=== PATIENT | female | born 1985 | race Caucasian/White ===

== ENCOUNTER 2016-11-26 15:02 | Inpatient (IN) | payer OTHER, MEDICARE ==
[~2016-11-26] VITALS: Ht 165.1 cm; Wt 46.0 kg
[~2016-11-26 15:02] MED LIST: AMOX-291 PO; AMOX1TAB64 PO; AMPI500C2 PO; BACL-19 PO; CEFD300C37 PO; CEFU250T PO; CEFU500T50 PO; ENAL2.5T PO; GABA-827 PO; GABA300C10 PO; HYDR2TAB13 PO; HYDR2TAB40 PO; HYDR4TAB16 PO; INSU100C SQ; LISI-167 PO; LORA2TAB PO; LORA2TAB99 PO; METO10TA82; MIRT15TA4 PO; NITR100C56; NITR100C56 PO; ONDA4TAB10 PO; ONDA4TAB7 PO; OXYC5TAB3 PO; OXYM10TA PO; POLY17PO5 PO; PREG100C PO; PROC25SU25 PR; PROM25TA10 PO; PROP50TA3; SENN1TAB7 PO
[2016-11-26] MEDS ORDERED: SODIUM CHLORIDE 0.9% 1,000 ML IV ONE (15:24)
[2016-11-26] MEDS ORDERED: SODIUM CHLORIDE 0.9% 1,000ML IVBOLUS ONE ×3 (15:30→17:00)
[2016-11-26] MEDS ORDERED: ONDANSETRON 2MG/ML, 2ML IVPush ONE (15:30)
[2016-11-26] MEDS ORDERED: ONDANSETRON 2MG/ML, 2ML ONE (15:37)
[2016-11-26 15:59] LABS: PH, VENOUS 7.259 pH (7.320-7.420)
[2016-11-26] MEDS ORDERED: OXYM5TAB PO (16:01)
[2016-11-26] MEDS ORDERED: INSULIN PUMP (16:01)
[2016-11-26] MEDS ORDERED: GABA300C10 PO (16:01)
[2016-11-26 16:08] LABS: PATH.CAST-FLAG NOT PRESENT; SPERM-FLAG NOT PRESENT; SRC-FLAG NOT PRESENT; XTAL-FLAG NOT PRESENT; YLC-FLAG NOT PRESENT
[2016-11-26] MEDS ORDERED: HYDROmorphone 1 MG/ML, 1ML ONE ×2 (16:12→18:03)
[2016-11-26 16:15] LABS: ASPARTATE AMINO TRANSFERASE 14 U/L (15-37); BLOOD UREA NITROGEN 67 mg/dL (7-18)
[2016-11-26] MEDS: HYDROmorphone 1 MG/ML, 1ML IVPush PRN ×4 (16:16→23:14)
[2016-11-26 16:28] LABS: DIFF TOTAL CELLS COUNTED 100 CELL DIFF
[2016-11-26] MEDS ORDERED: REGULAR INSULIN 62.5 UNITS in SODIUM CHLORIDE 0.9% 249.375 ML IV PRN ×4 (16:29→22:31)
[2016-11-26] MEDS ORDERED: CEFTRIAXONE PMX 1GM/50ML 50 ML IV ONE (16:30)
[2016-11-26 16:33] LABS: VERIFY COUNTS? YES
[2016-11-26 16:39] LABS: IS PT STATUS REG ER OR PRE ER? YES
[2016-11-26] MEDS ORDERED: LIDOCAINE 1%, 20ML INFIL ONE (17:00)
[2016-11-26] MEDS ORDERED: CEFTRIAXONE PMX 1GM/50ML 50 ML ONE (17:04)
[2016-11-26] MEDS ORDERED: LIDOCAINE 1%, 20ML ONE (17:04)
[2016-11-26] MEDS ORDERED: BISACODYL 10 MG SUPP PR PRN (18:00)
[2016-11-26] MEDS ORDERED: OXYcodone IR 5MG TABLET PO PRN (18:00)
[2016-11-26] MEDS ORDERED: POLYETHYLENE GLYCOL 17 GM PACKET PO PRN (18:00)
[2016-11-26] MEDS ORDERED: ONDANSETRON 2MG/ML, 2ML IVPush PRN (18:00)
[2016-11-26 18:21] LABS: HCG UR OBC PASS
[2016-11-26 18:50] LABS: BLOOD UREA NITROGEN 66 mg/dL (7-18)
[2016-11-26] MEDS: HEPARIN 5,000 UNITS/ML, 1ML SQ SCH (20:16)
[2016-11-26] MEDS ORDERED: FAMOTIDINE 20 MG TABLET PO SCH (21:00)
[2016-11-26 21:09] LABS: BLOOD UREA NITROGEN 65 mg/dL (7-18)
[2016-11-26] MEDS: GABAPENTIN 300 MG CAPSULE PO SCH (21:10)
[2016-11-26] MEDS: SODIUM CHLORIDE 0.9% 1,000 ML IV SCH (21:13)
[2016-11-26 22:46] LABS: BLOOD UREA NITROGEN 61 mg/dL (7-18)
[2016-11-26] MEDS ORDERED: D5%-0.45% NACL 1,000 ML IV PRN (23:00)
[2016-11-26] MEDS ORDERED: SODIUM BICARB 8.4%, 50ML SYRINGE IVPB PRN (23:00)
[2016-11-26] MEDS ORDERED: LORazepam 1MG TABLET ONE (23:08)
[2016-11-27 02:18] LABS: BLOOD UREA NITROGEN 54 mg/dL (7-18)
[2016-11-27] MEDS: SODIUM CHLORIDE 0.9% 1,000 ML IV SCH ×3 (02:35→22:50)
[2016-11-27] MEDS: HEPARIN 5,000 UNITS/ML, 1ML SQ SCH ×3 (02:36→18:00)
[2016-11-27] MEDS ORDERED: D5%-0.45NACL+KCL 20MEQ 1,000 ML IV SCH (03:00)
[2016-11-27] MEDS: HYDROmorphone 1 MG/ML, 1ML IVPush PRN (03:40)
[2016-11-27 04:36] VITALS: BP 149/68
[2016-11-27 04:44] LABS: BLOOD UREA NITROGEN 50 mg/dL (7-18)
[2016-11-27 04:48] LABS: ASPARTATE AMINO TRANSFERASE 20 U/L (15-37)
[2016-11-27 05:38] LABS: DIFF TOTAL CELLS COUNTED 100 CELL DIFF
[2016-11-27 05:40] LABS: VERIFY COUNTS? YES
[2016-11-27] MEDS ORDERED: VANCOMYCIN 800 MG in SODIUM CHLORIDE 0.9% 100 ML IV ONE (06:30)
[2016-11-27] MEDS ORDERED: INSULIN DETEMIR 100 UNITS/ML, PEN SQ-INSULIN ONE (06:30)
[2016-11-27] MEDS ORDERED: VANCOMYCIN PER PHARMACY MC PRN (06:30)
[2016-11-27] MEDS ORDERED: PHARMACOKINETIC MONITORING MC PRN (06:30)
[2016-11-27 07:22] VITALS: BP 122/61
[2016-11-27] MEDS: FAMOTIDINE 20 MG TABLET PO SCH (08:07)
[2016-11-27] MEDS: INSULIN ASPART 100 UNITS/ML, 3ML PEN MEDIUM DOSE SS SQ-INSULIN SCH ×4 (09:22→20:48)
[2016-11-27 10:10] LABS: BLOOD UREA NITROGEN 44 mg/dL (7-18)
[2016-11-27] MEDS: HYDROmorphone 2MG TABLET PO PRN ×4 (10:39→23:31)
[2016-11-27 13:34] VITALS: BP 159/111
[2016-11-27] MEDS ORDERED: CEFTRIAXONE 1,000 MG in SODIUM CHLORIDE 0.9% 50 ML IV SCH (15:00)
[2016-11-27] MEDS: CEFTRIAXONE PMX 1GM/50ML 50 ML IV SCH (17:05)
[2016-11-27 19:37] VITALS: BP 153/99
[2016-11-27] MEDS: GABAPENTIN 300 MG CAPSULE PO SCH (20:48)
[2016-11-28] MEDS: INSULIN ASPART 100 UNITS/ML, 3ML PEN MEDIUM DOSE SS SQ-INSULIN SCH ×6 (01:00→20:40)
[2016-11-28 02:00] VITALS: BP 165/99
[2016-11-28] MEDS: HEPARIN 5,000 UNITS/ML, 1ML SQ SCH ×3 (02:00→17:15)
[2016-11-28] MEDS: HYDROmorphone 2MG TABLET PO PRN ×5 (03:30→21:26)
[2016-11-28 05:29] LABS: BLOOD UREA NITROGEN 24 mg/dL (7-18)
[2016-11-28] MEDS ORDERED: INSULIN DETEMIR 100 UNITS/ML, PEN SQ-INSULIN SCH (06:00)
[2016-11-28 07:01] VITALS: BP 145/95
[2016-11-28] MEDS: FAMOTIDINE 20 MG TABLET PO SCH (08:42)
[2016-11-28] MEDS ORDERED: VANCOMYCIN PMX 1GM/200ML 200 ML IVPB SCH (12:00)
[2016-11-28 12:43] VITALS: BP 155/103
[2016-11-28] MEDS ORDERED: INSULIN DETEMIR 100 UNITS/ML, PEN SQ-INSULIN ONE (15:30)
[2016-11-28] MEDS: CEFTRIAXONE PMX 1GM/50ML 50 ML IV SCH (17:10)
[2016-11-28 19:27] VITALS: BP 155/92
[2016-11-28] MEDS: SODIUM CHLORIDE 0.9% 1,000 ML IV SCH (20:36)
[2016-11-28] MEDS: GABAPENTIN 300 MG CAPSULE PO SCH (20:38)
[2016-11-29 01:30] VITALS: BP 168/111
[2016-11-29] MEDS: HYDROmorphone 2MG TABLET PO PRN ×4 (01:42→15:22)
[2016-11-29] MEDS: HEPARIN 5,000 UNITS/ML, 1ML SQ SCH ×2 (01:43→10:00)
[2016-11-29] MEDS: INSULIN ASPART 100 UNITS/ML, 3ML PEN MEDIUM DOSE SS SQ-INSULIN SCH ×4 (01:49→15:25)
[2016-11-29 05:47] LABS: BLOOD UREA NITROGEN 17 mg/dL (7-18)
[2016-11-29 06:40] VITALS: BP 155/122
[2016-11-29] MEDS ORDERED: INSULIN DETEMIR 100 UNITS/ML, PEN SQ-INSULIN SCH (09:00)
[2016-11-29] MEDS: FAMOTIDINE 20 MG TABLET PO SCH (09:43)
[2016-11-29] MEDS: SODIUM CHLORIDE 0.9% 1,000 ML IV SCH (09:51)
[2016-11-29] MEDS ORDERED: AMOX-367 PO (11:51)
[2016-11-29] MEDS ORDERED: INSU100I28 SQ-INSULIN (11:51)
[2016-11-29] MEDS ORDERED: AMOXICILLIN/CLAV 500-125MG TABLET PO SCH (12:00)
[2016-11-29 14:04] VITALS: BP 155/98
== END 2016-11-29 18:00 | disposition home or self-care (01) | DRG 919 ==
LOC: ED 16:13 → EDIP 17:49 → CCU 18:54 → ICU 22:53 → 3NE 11-27 13:16
PROVIDERS: ADMIT Hospitalist; ATTEND Hospitalist
PROC: 0H9CXZZ Drainage of Left Upper Arm Skin, External Approach (ICD-10-PCS; principal; 2016-11-26)
DX: T85.624A Displacement of insulin pump, initial encounter (principal); A41.9 Sepsis, unspecified organism; R65.20 Severe sepsis without septic shock; E10.10 Type 1 diabetes mellitus with ketoacidosis without coma; N17.9 Acute kidney failure, unspecified; F11.20 Opioid dependence, uncomplicated; L02.416 Cutaneous abscess of left lower limb; E87.1 Hypo-osmolality and hyponatremia; L97.419 Non-pressure chronic ulcer of right heel and midfoot with unspecified severity; L97.429 Non-pressure chronic ulcer of left heel and midfoot with unspecified severity; E10.621 Type 1 diabetes mellitus with foot ulcer; F41.9 Anxiety disorder, unspecified; G89.29 Other chronic pain; I10 Essential (primary) hypertension; E10.40 Type 1 diabetes mellitus with diabetic neuropathy, unspecified; B95.61 Methicillin susceptible Staphylococcus aureus infection as the cause of diseases classified elsewhere; E86.0 Dehydration; I80.8 Phlebitis and thrombophlebitis of other sites; F17.210 Nicotine dependence, cigarettes, uncomplicated; F12.90 Cannabis use, unspecified, uncomplicated; Z90.49 Acquired absence of other specified parts of digestive tract; Z88.5 Allergy status to narcotic agent; Z88.8 Allergy status to other drugs, medicaments and biological substances; Z91.040 Latex allergy status; Z79.899 Other long term (current) drug therapy; Z87.440 Personal history of urinary (tract) infections; Z79.4 Long term (current) use of insulin
CPT/HCPCS: 36415; 71010; 80048; 80053; 81001; 81025; 82010; 82803; 82962; 83036; 83690; 83735; 84100; 84484; 85025; 85610; 85651; 86141; 87040; 87070; 87077; 87081; 87086; 87186; 87205; 93005; 96361; 96365; 96366; 96375; J0696; J1170; J1644; J1815; J2405; J3370; J3480; J7030; J7050

== ENCOUNTER 2017-06-06 22:35 | Inpatient (IN) | payer OTHER, MEDICARE ==
[~2017-06-06] VITALS: Ht 165.1 cm; Wt 48.3 kg
[~2017-06-06 22:35] MED LIST changes: +AMOX-367 PO; +CARI350T14 PO; -HYDR2TAB13 PO; +HYDR2TAB29 PO; -HYDR4TAB16 PO; +HYDR4TAB48 PO; +IBUP200C6 PO; +INSU100I28 SQ-INSULIN; +INSULIN PUMP; +MELO15TA24 PO; +OXYM5TAB PO
[2017-06-07] MEDS ORDERED: ONDANSETRON 2MG/ML, 2ML IVPush ONE
[2017-06-07] MEDS ORDERED: ONDANSETRON 2MG/ML, 2ML ONE (00:13)
[2017-06-07 00:19] LABS: PH, VENOUS 7.329 pH (7.320-7.420)
[2017-06-07 00:22] LABS: HEMATOCRIT 33.9 % (34.6-47.8); HEMOGLOBIN 11.1 g/dL (11.7-16.4); WHITE BLOOD COUNT 11.1 x10^3/uL (3.4-10)
[2017-06-07 00:39] LABS: BLOOD UREA NITROGEN 32 mg/dL (7-18)
[2017-06-07 00:45] LABS: ASPARTATE AMINO TRANSFERASE 19 U/L (15-37)
[2017-06-07 00:50] LABS: ACETAMINOPHEN < 2 mcg/mL (10-30)
[2017-06-07 02:16] LABS: DAU SCREEN DISCLAIMER
[2017-06-07] MEDS ORDERED: INSULIN REGULAR 100 UNITS/ML, 3ML VIAL SQ-INSULIN ONE (03:00)
[2017-06-07] MEDS ORDERED: SODIUM CHLORIDE 0.9% 1,000ML IVBOLUS ONE ×2 (03:00)
[2017-06-07] MEDS ORDERED: INSULIN REGULAR 100 UNITS/ML, 3ML VIAL ONE (03:21)
[2017-06-07] MEDS ORDERED: CEFTRIAXONE PMX 1GM/50ML 50 ML ONE (03:21)
[2017-06-07] MEDS ORDERED: CEFTRIAXONE PMX 1GM/50ML 50 ML IV ONE (03:30)
[2017-06-07 03:53] VITALS: BP 159/105
[2017-06-07 03:55] VITALS: BP 159/102
[2017-06-07] MEDS: SODIUM CHLORIDE 0.9% 1,000 ML IV SCH ×11 (05:54→19:56)
[2017-06-07] MEDS ORDERED: ACETAMINOPHEN 325 MG TABLET PO PRN (06:00)
[2017-06-07] MEDS ORDERED: BISACODYL 10 MG SUPP PR PRN (06:00)
[2017-06-07] MEDS ORDERED: ONDANSETRON 2MG/ML, 2ML IVPush PRN (06:00)
[2017-06-07] MEDS ORDERED: DOCUSATE 100 MG CAPSULE PO PRN (06:00)
[2017-06-07] MEDS ORDERED: ONDANSETRON ODT 4 MG PO PRN (06:00)
[2017-06-07 06:15] LABS: HEMATOCRIT 31.8 % (34.6-47.8); HEMOGLOBIN 10.8 g/dL (11.7-16.4); WHITE BLOOD COUNT 9.8 x10^3/uL (3.4-10)
[2017-06-07 06:35] LABS: ASPARTATE AMINO TRANSFERASE 18 U/L (15-37); BLOOD UREA NITROGEN 29 mg/dL (7-18)
[2017-06-07 07:08] VITALS: BP 168/100
[2017-06-07] MEDS ORDERED: KETOROLAC 30 MG/1 ML IVPush PRN (08:00)
[2017-06-07] MEDS ORDERED: LABETALOL 5MG/ML, 20ML IVPush PRN (08:30)
[2017-06-07] MEDS: INSULIN ASPART 100 UNITS/ML, PEN SQ-INSULIN SCH ×2 (08:42→12:17)
[2017-06-07] MEDS ORDERED: LISINOPRIL 10 MG TABLET PO SCH (09:00)
[2017-06-07 14:00] VITALS: BP 149/89
[2017-06-07] MEDS ORDERED: CALCIUM CARBONATE 500 MG TAB.CHEW ONE (16:45)
[2017-06-07] MEDS ORDERED: CALCIUM CARBONATE 500 MG TAB.CHEW PO PRN (17:00)
[2017-06-07] MEDS ORDERED: INSULIN ASPART 100 UNITS/ML, PEN SQ-INSULIN SCH (17:00)
[2017-06-07 20:16] VITALS: BP 126/69
[2017-06-07] MEDS ORDERED: INSULIN DETEMIR 100 UNITS/ML, PEN SQ-INSULIN SCH (21:00)
[2017-06-07] MEDS ORDERED: INSULIN ASPART 100 UNITS/ML, PEN SQ-INSULIN ONE (21:00)
[2017-06-08] MEDS ORDERED: CEFTRIAXONE PMX 1GM/50ML 50 ML IV SCH (03:30)
[2017-06-08] MEDS ORDERED: CEFTRIAXONE 1,000 MG in DEXTROSE 5% 50 ML IV SCH (03:30)
== END 2017-06-07 21:10 | disposition left against medical advice (07) | DRG 637 ==
LOC: ED 23:59 → EDIP 06-07 03:02 → 4NOR 06-07 03:47
PROVIDERS: ADMIT Surgery; ATTEND Surgery
DX: E11.10 Type 2 diabetes mellitus with ketoacidosis without coma (principal); N17.0 Acute kidney failure with tubular necrosis; G93.41 Metabolic encephalopathy; N30.90 Cystitis, unspecified without hematuria; I11.9 Hypertensive heart disease without heart failure; F12.90 Cannabis use, unspecified, uncomplicated; E10.65 Type 1 diabetes mellitus with hyperglycemia; E86.0 Dehydration; E11.65 Type 2 diabetes mellitus with hyperglycemia; G89.29 Other chronic pain; Z79.4 Long term (current) use of insulin; Z87.19 Personal history of other diseases of the digestive system; Z91.14 Patient's other noncompliance with medication regimen; Z90.49 Acquired absence of other specified parts of digestive tract; Z90.89 Acquired absence of other organs; Z88.8 Allergy status to other drugs, medicaments and biological substances; Z91.040 Latex allergy status
CPT/HCPCS: 36415; 80053; 80061; 80307; 80329; 81001; 82010; 82803; 82947; 82962; 83036; 83690; 83735; 84100; 84443; 84703; 85025; 87086; 93005; 96361; 96372; 96374; J0696; J1815; J1885; G0479; G0480; J7030

== ENCOUNTER 2017-10-09 12:47 | Inpatient (IN) | payer OTHER, MEDICARE ==
[~2017-10-09] VITALS: Ht 165.1 cm; Wt 56.0 kg
[2017-10-09] MEDS ORDERED: SODIUM CHLORIDE 0.9% 1,000 ML IV ONE ×2 (13:17→15:04)
[2017-10-09] MEDS ORDERED: SODIUM CHLORIDE 0.9% 1,000ML IVBOLUS ONE ×2 (13:30→14:30)
[2017-10-09] MEDS ORDERED: SODIUM CHLORIDE FLUSH 10ML SYR IVF ONE (13:30)
[2017-10-09 13:47] LABS: BASOPHILS # (AUTO) 0.03 x10^3/uL (0-0.1); BASOPHILS % (AUTO) 0 % (0-1); EOSINOPHILS # (AUTO) 0.05 x10^3/uL (0-0.4); EOSINOPHILS % (AUTO) 1 % (1-7); LYMPHOCYTES # (AUTO) 1.18 x10^3/uL (1-3.4); LYMPHOCYTES % (AUTO) 13 % (22-44); MD NO; MEAN CORPUSCULAR HEMOGLOBIN 29.8 pg (27.0-34.8); MEAN CORPUSCULAR HGB CONC 33.8 g/dL (32.4-35.8); MEAN CORPUSCULAR VOLUME 88.2 fL (80-100); MEAN PLATELET VOLUME 8.4 fL (7.4-10.4); MONOCYTES # (AUTO) 0.51 x10^3/uL (0.2-0.8); MONOCYTES % (AUTO) 6 % (2-9); NEUTROPHILS # (AUTO) 7.28 x10^3/uL (1.8-6.8); NEUTROPHILS % (AUTO) 81 % (42-75); PLATELET COUNT 311 x10^3/uL (130-400); RED BLOOD COUNT 4.42 x10^6/uL (3.82-5.3); RED CELL DISTRIBUTION WIDTH 15.9 % (9.6-15.2)
[2017-10-09 13:55] LABS: CULTURE INDICATED? YES; MICROSCOPIC INDICATED
[2017-10-09 13:58] LABS: ANION GAP 13 mmol/L (5-15); CALCIUM 9.1 mg/dL (8.5-10.1); CHLORIDE 87 mmol/L (98-107)
[2017-10-09 14:02] LABS: ACETONE, SERUM Small (20mg/dL) mg/dL (Negative)
[2017-10-09 14:04] LABS: ALANINE AMINOTRANSFERASE 26 U/L (12-78); ALKALINE PHOSPHATASE 92 U/L (45-117); BILIRUBIN,TOTAL 0.5 mg/dL (0.2-1.0); CREATININE 2.54 mg/dL (0.55-1.02)
[2017-10-09] MEDS ORDERED: CEFTRIAXONE PMX 1GM/50ML 50 ML ONE (14:18)
[2017-10-09] MEDS ORDERED: CEFTRIAXONE PMX 1GM/50ML 50 ML IVPB ONE (14:30)
[2017-10-09 14:40] LABS: HEMOGLOBIN A1C 8.6 % (4.2-6.3)
[2017-10-09] MEDS ORDERED: MORPHINE SULFATE 4 MG/ML, 1ML ONE (15:08)
[2017-10-09] MEDS ORDERED: INSULIN REGULAR 100 UNITS/ML, 3ML VIAL ONE (15:09)
[2017-10-09] MEDS ORDERED: CARI350T PO (15:18)
[2017-10-09] MEDS ORDERED: IBUP-1221 PO (15:18)
[2017-10-09] MEDS ORDERED: MORPHINE SULFATE 4 MG/ML, 1ML IVPush PRN (15:30)
[2017-10-09] MEDS ORDERED: INSULIN REGULAR 100 UNITS/ML, 3ML VIAL IVPush ONE (15:30)
[2017-10-09] MEDS ORDERED: SODIUM CHLORIDE FLUSH 10ML SYR IVF PRN (15:30)
[2017-10-09] MEDS ORDERED: GLUCAGON 1 MG IM PRN (16:00)
[2017-10-09] MEDS ORDERED: DEXTROSE 50%, 50ML SYRINGE IVPush PRN (16:00)
[2017-10-09] MEDS ORDERED: SODIUM CHLORIDE 0.9% 1,000 ML IV SCH ×4 (16:00→20:00)
[2017-10-09] MEDS ORDERED: DEXTROSE 4 GM TAB.CHEW PO PRN (16:00)
[2017-10-09] MEDS ORDERED: ONDANSETRON 2MG/ML, 2ML IVPush PRN (16:00)
[2017-10-09 16:52] LABS: ALBUMIN 3.2 g/dL (3.4-5.0); ANION GAP 11 mmol/L (5-15); CALCIUM 8.4 mg/dL (8.5-10.1); CHLORIDE 103 mmol/L (98-107)
[2017-10-09 16:57] LABS: ALANINE AMINOTRANSFERASE 23 U/L (12-78); ALKALINE PHOSPHATASE 72 U/L (45-117); BILIRUBIN,TOTAL 0.3 mg/dL (0.2-1.0); CREATINE KINASE, TOTAL 78 U/L (26-192); CREATININE 2.11 mg/dL (0.55-1.02); TOTAL PROTEIN 6.6 g/dL (6.4-8.2)
[2017-10-09] MEDS ORDERED: SODIUM CHLORIDE 0.9% 1,500 ML IV SCH (17:00)
[2017-10-09] MEDS ORDERED: SODIUM CHLORIDE 0.9% 1,500 ML IV ONE (17:30)
[2017-10-09] MEDS ORDERED: ONDANSETRON ODT 4 MG ONE (17:38)
[2017-10-09] MEDS: AMPICILLIN/SULBACTAM 1,500 MG in SODIUM CHLORIDE 0.9% 50 ML IV SCH ×2 (17:47→23:31)
[2017-10-09] MEDS: INSULIN LISPRO 100 UNITS/ML, PEN SQ-INSULIN SCH ×2 (17:49→20:53)
[2017-10-09] MEDS: HEPARIN 5,000 UNITS/ML, 1ML SQ SCH (17:49)
[2017-10-09] MEDS: LIDODERM 5% PATCH TD SCH (17:50)
[2017-10-09 18:09] VITALS: BP 126/84
[2017-10-09 18:39] VITALS: BP 124/80
[2017-10-09] MEDS ORDERED: POTASSIUM CHLORIDE 20 MEQ TAB.ER.PRT PO ONE (20:30)
[2017-10-09] MEDS: SODIUM CHLORIDE FLUSH 10ML SYR IVF SCH (20:45)
[2017-10-09] MEDS ORDERED: INSULIN GLARGINE 100 UNITS/ML, PEN SQ-INSULIN SCH (21:00)
[2017-10-09] MEDS ORDERED: PHENAZOPYRIDINE 200 MG TABLET PO ONE (23:00)
[2017-10-09 23:57] VITALS: BP 131/87
[2017-10-10] MEDS: HEPARIN 5,000 UNITS/ML, 1ML SQ SCH ×4 (03:01→18:00)
[2017-10-10] MEDS: AMPICILLIN/SULBACTAM 1,500 MG in SODIUM CHLORIDE 0.9% 50 ML IV SCH ×3 (04:52→18:29)
[2017-10-10 05:30] LABS: BASOPHILS # (AUTO) 0.03 x10^3/uL (0-0.1); BASOPHILS % (AUTO) 1 % (0-1); EOSINOPHILS # (AUTO) 0.13 x10^3/uL (0-0.4); EOSINOPHILS % (AUTO) 2 % (1-7); LYMPHOCYTES % (AUTO) 31 % (22-44); MD NO; MEAN CORPUSCULAR HEMOGLOBIN 30.5 pg (27.0-34.8); MEAN CORPUSCULAR HGB CONC 33.6 g/dL (32.4-35.8); MEAN CORPUSCULAR VOLUME 90.8 fL (80-100); MONOCYTES # (AUTO) 0.44 x10^3/uL (0.2-0.8); MONOCYTES % (AUTO) 7 % (2-9); NEUTROPHILS # (AUTO) 3.91 x10^3/uL (1.8-6.8); NEUTROPHILS % (AUTO) 60 % (42-75); PLATELET COUNT 257 x10^3/uL (130-400); RED BLOOD COUNT 3.27 x10^6/uL (3.82-5.3)
[2017-10-10 05:32] LABS: ALBUMIN 2.9 g/dL (3.4-5.0); ANION GAP 7 mmol/L (5-15); CALCIUM 8.1 mg/dL (8.5-10.1); CHLORIDE 107 mmol/L (98-107)
[2017-10-10 05:36] LABS: ALANINE AMINOTRANSFERASE 19 U/L (12-78); ALKALINE PHOSPHATASE 62 U/L (45-117); BILIRUBIN,TOTAL 0.5 mg/dL (0.2-1.0); CREATININE 1.25 mg/dL (0.55-1.02)
[2017-10-10] MEDS: INSULIN LISPRO 100 UNITS/ML, PEN SQ-INSULIN SCH ×4 (07:00→21:27)
[2017-10-10 08:30] VITALS: BP 123/58
[2017-10-10] MEDS ORDERED: CARISOPRODOL 350 MG TABLET PO SCH (09:00)
[2017-10-10] MEDS: SODIUM CHLORIDE FLUSH 10ML SYR IVF SCH ×2 (09:27→21:00)
[2017-10-10 12:06] VITALS: BP 149/102
[2017-10-10] MEDS ORDERED: AMLODIPINE 5 MG TABLET PO SCH (13:00)
[2017-10-10 15:28] VITALS: BP 145/94
[2017-10-10] MEDS ORDERED: SODIUM CHLORIDE 0.9% 1,500 ML IV ONE (17:00)
[2017-10-10] MEDS: LIDODERM 5% PATCH TD SCH (18:29)
[2017-10-10 20:00] VITALS: BP 152/95
[2017-10-10] MEDS: INSULIN GLARGINE 100 UNITS/ML, PEN SQ-INSULIN SCH (21:50)
[2017-10-11] VITALS (7 sets, daily range): BP systolic 128–167; BP diastolic 76–123
[2017-10-11] MEDS: AMPICILLIN/SULBACTAM 1,500 MG in SODIUM CHLORIDE 0.9% 50 ML IV SCH ×2 (00:33→06:28)
[2017-10-11] MEDS: HEPARIN 5,000 UNITS/ML, 1ML SQ SCH ×3 (02:00→17:23)
[2017-10-11] MEDS: hydrALAzine 20 MG/ML, 1ML IV PRN ×3 (05:18→20:19)
[2017-10-11 05:34] LABS: CHLORIDE 103 mmol/L (98-107)
[2017-10-11 05:42] LABS: BASOPHILS # (AUTO) 0.02 x10^3/uL (0-0.1); BASOPHILS % (AUTO) 1 % (0-1); EOSINOPHILS # (AUTO) 0.21 x10^3/uL (0-0.4); EOSINOPHILS % (AUTO) 5 % (1-7); LYMPHOCYTES # (AUTO) 2.02 x10^3/uL (1-3.4); LYMPHOCYTES % (AUTO) 42 % (22-44); MD NO; MEAN CORPUSCULAR HEMOGLOBIN 30.6 pg (27.0-34.8); MEAN CORPUSCULAR HGB CONC 34.2 g/dL (32.4-35.8); MEAN CORPUSCULAR VOLUME 89.5 fL (80-100); MEAN PLATELET VOLUME 7.6 fL (7.4-10.4); MONOCYTES # (AUTO) 0.38 x10^3/uL (0.2-0.8); MONOCYTES % (AUTO) 8 % (2-9); NEUTROPHILS # (AUTO) 2.16 x10^3/uL (1.8-6.8); NEUTROPHILS % (AUTO) 45 % (42-75); PLATELET COUNT 242 x10^3/uL (130-400); RED BLOOD COUNT 3.65 x10^6/uL (3.82-5.3); RED CELL DISTRIBUTION WIDTH 16.2 % (9.6-15.2)
[2017-10-11 05:47] LABS: ALANINE AMINOTRANSFERASE 21 U/L (12-78); ALBUMIN 3.3 g/dL (3.4-5.0); ALKALINE PHOSPHATASE 66 U/L (45-117); ANION GAP 9 mmol/L (5-15); BILIRUBIN,TOTAL 0.3 mg/dL (0.2-1.0); CALCIUM 9.2 mg/dL (8.5-10.1); TOTAL PROTEIN 6.9 g/dL (6.4-8.2)
[2017-10-11] MEDS: INSULIN LISPRO 100 UNITS/ML, PEN SQ-INSULIN SCH ×4 (07:00→20:25)
[2017-10-11] MEDS: SODIUM CHLORIDE FLUSH 10ML SYR IVF SCH ×2 (08:18→20:52)
[2017-10-11] MEDS: AMLODIPINE 5 MG TABLET PO SCH (08:18)
[2017-10-11] MEDS ORDERED: AMOXICILLIN/CLAV 875-125MG TABLET PO SCH (09:00)
[2017-10-11] MEDS: DIPHENHYDRAMINE 25 MG CAPSULE PO PRN ×2 (12:09→22:25)
[2017-10-11] MEDS: NITROFURANTOIN 50 MG CAPSULE PO SCH ×2 (16:20→20:19)
[2017-10-11] MEDS: LIDODERM 5% PATCH TD SCH (17:28)
[2017-10-11] MEDS: INSULIN GLARGINE 100 UNITS/ML, PEN SQ-INSULIN SCH (20:25)
[2017-10-12] MEDS: HEPARIN 5,000 UNITS/ML, 1ML SQ SCH ×3 (02:00→17:37)
[2017-10-12 03:58] VITALS: BP 157/97
[2017-10-12] MEDS: INSULIN LISPRO 100 UNITS/ML, PEN SQ-INSULIN SCH ×3 (07:00→16:00)
[2017-10-12 08:43] VITALS: BP 169/119
[2017-10-12] MEDS: NITROFURANTOIN 50 MG CAPSULE PO SCH ×3 (08:44→16:03)
[2017-10-12] MEDS: AMLODIPINE 5 MG TABLET PO SCH (08:45)
[2017-10-12] MEDS: SODIUM CHLORIDE FLUSH 10ML SYR IVF SCH (08:46)
[2017-10-12] MEDS ORDERED: LISINOPRIL 5 MG TABLET PO SCH (09:00)
[2017-10-12 14:03] VITALS: BP 121/79
[2017-10-12] MEDS: LIDODERM 5% PATCH TD SCH (17:30)
== END 2017-10-12 19:12 | disposition left against medical advice (07) | DRG 682 ==
LOC: ED 14:18 → EDIP 15:04 → 4WST 16:51
PROVIDERS: ADMIT Hospitalist; ATTEND Hospitalist
DX: N17.9 Acute kidney failure, unspecified (principal); G93.41 Metabolic encephalopathy; E10.10 Type 1 diabetes mellitus with ketoacidosis without coma; E10.40 Type 1 diabetes mellitus with diabetic neuropathy, unspecified; N39.0 Urinary tract infection, site not specified; E87.1 Hypo-osmolality and hyponatremia; F23 Brief psychotic disorder; N13.6 Pyonephrosis; E10.65 Type 1 diabetes mellitus with hyperglycemia; E86.0 Dehydration; Z53.21 Procedure and treatment not carried out due to patient leaving prior to being seen by health care provider; E83.41 Hypermagnesemia; F41.9 Anxiety disorder, unspecified; E10.649 Type 1 diabetes mellitus with hypoglycemia without coma; E87.6 Hypokalemia; G47.00 Insomnia, unspecified; I10 Essential (primary) hypertension; Z79.4 Long term (current) use of insulin; Z87.440 Personal history of urinary (tract) infections; Z87.442 Personal history of urinary calculi
CPT/HCPCS: 36415; 76770; 80053; 81001; 82010; 82550; 82800; 82962; 83036; 83605; 83690; 83735; 84100; 84145; 84703; 85025; 87040; 87077; 87086; 87186; 96361; 96365; 96375; J0696; J1644; J0295; J0360; J1815; J7030; Q0163

== ENCOUNTER 2018-04-07 19:08 | Emergency (ER) | payer MEDICARE, OTHER ==
[~2018-04-07] VITALS: Ht 165.1 cm; Wt 45.0 kg
[~2018-04-07 19:08] MED LIST changes: +CARI350T PO; +IBUP-1221 PO; -SENN1TAB7 PO; +SENN1TAB8 PO
[2018-04-07] MEDS ORDERED: ONDANSETRON ODT 4 MG ONE (19:30)
[2018-04-07 19:59] LABS: BASOPHILS # (AUTO) 0.04 x10^3/uL (0-0.1); BASOPHILS % (AUTO) 1 % (0-1); EOSINOPHILS # (AUTO) 0.11 x10^3/uL (0-0.4); EOSINOPHILS % (AUTO) 2 % (1-7); LYMPHOCYTES # (AUTO) 2.31 x10^3/uL (1-3.4); LYMPHOCYTES % (AUTO) 39 % (22-44); MD NO; MEAN CORPUSCULAR HEMOGLOBIN 30.4 pg (27.0-34.8); MEAN CORPUSCULAR HGB CONC 33.3 g/dL (32.4-35.8); MEAN CORPUSCULAR VOLUME 91.1 fL (80-100); MEAN PLATELET VOLUME 7.7 fL (7.4-10.4); MONOCYTES % (AUTO) 3 % (2-9); NEUTROPHILS # (AUTO) 3.27 x10^3/uL (1.8-6.8); NEUTROPHILS % (AUTO) 55 % (42-75); PLATELET COUNT 310 x10^3/uL (130-400); RED BLOOD COUNT 4.11 x10^6/uL (3.82-5.3)
[2018-04-07] MEDS ORDERED: SODIUM CHLORIDE FLUSH 10ML SYR IVF ONE (20:00)
[2018-04-07] MEDS ORDERED: ONDANSETRON 2MG/ML, 2ML IVPush ONE (20:00)
[2018-04-07] MEDS ORDERED: SODIUM CHLORIDE 0.9% 1,000ML IVBOLUS ONE ×2 (20:00→21:00)
[2018-04-07 20:10] LABS: HCG UR SG 1.019 (1.003-1.030); MICROSCOPIC AUTO
[2018-04-07 20:11] LABS: ALBUMIN 3.5 g/dL (3.4-5.0); ANION GAP 12 mmol/L (5-15); CALCIUM 8.5 mg/dL (8.5-10.1); CHLORIDE 110 mmol/L (98-107); CREATININE 1.34 mg/dL (0.55-1.02)
[2018-04-07 20:18] LABS: CULTURE INDICATED? NO
[2018-04-07 21:46] VITALS: BP 110/64
== END 2018-04-07 21:49 | disposition home or self-care (01) ==
LOC: ED 21:43
DX: E11.65 Type 2 diabetes mellitus with hyperglycemia (principal); R11.2 Nausea with vomiting, unspecified; I10 Essential (primary) hypertension; Z90.49 Acquired absence of other specified parts of digestive tract; E11.10 Type 2 diabetes mellitus with ketoacidosis without coma
CPT/HCPCS: 36415; 74021; 80048; 81001; 81025; 82040; 82962; 85025; 96361; 96374; 99285; J2405; J7030

== ENCOUNTER 2018-06-21 11:25 | Inpatient (IN) | payer OTHER, MEDICARE ==
[~2018-06-21] VITALS: Ht 165.1 cm; Wt 50.5 kg
--- NOTE | 2018-06-21 11:41 | NUR ---
PT TO ROOM FROM LOBBY
--- NOTE | 2018-06-21 11:47 | NUR ---
33 Y/O FEMALE PRESENTS TO ED WITH C/O LOW BP. "I WAS AT MY DR'S AND HE SAID MY BP IS REALLY LOW. AND JUST SENT ME HERE. I WAS DIZZY WHEN I WOKE UP AND AT THE OFFICE. HE IS MY PAIN DR." PT PLACED ON CONT PULSE OX, NIBP, DIETIST. NO C/O N/V/D, TRAUMA, SYNCOPE, CP, SOB.
--- NOTE | 2018-06-21 12:18 | NUR ---
UA WALKED TO LAB. WHEN PT ASKED REGARDING A STOOL SAMPLE, PT STATES "I DON'T HAVE ANY TO GO."
[2018-06-21] MEDS ORDERED: SODIUM CHLORIDE 0.9% 1,000ML IVBOLUS ONE (12:30)
[2018-06-21 12:39] LABS: FIO2 RA %; PH, VENOUS 7.394 pH (7.320-7.420)
[2018-06-21 12:45] LABS: BASOPHILS % (AUTO) 0 % (0-1); EOSINOPHILS # (AUTO) 0.01 x10^3/uL (0-0.4); EOSINOPHILS % (AUTO) 0 % (1-7); LYMPHOCYTES % (AUTO) 11 % (22-44); MD NO; MEAN CORPUSCULAR HEMOGLOBIN 30.8 pg (27.0-34.8); MEAN CORPUSCULAR HGB CONC 32.9 g/dL (32.4-35.8); MEAN CORPUSCULAR VOLUME 93.8 fL (80-100); MEAN PLATELET VOLUME 8.4 fL (7.4-10.4); MONOCYTES # (AUTO) 0.33 x10^3/uL (0.2-0.8); MONOCYTES % (AUTO) 6 % (2-9); NEUTROPHILS # (AUTO) 4.36 x10^3/uL (1.8-6.8); NEUTROPHILS % (AUTO) 82 % (42-75); PLATELET COUNT 278 x10^3/uL (130-400); RED BLOOD COUNT 4.09 x10^6/uL (3.82-5.3); RED CELL DISTRIBUTION WIDTH 15.7 % (9.6-15.2)
[2018-06-21 12:51] LABS: ALANINE AMINOTRANSFERASE 290 U/L (12-78); ANION GAP 8 mmol/L (5-15); CALCIUM 8.5 mg/dL (8.5-10.1); CHLORIDE 101 mmol/L (98-107)
[2018-06-21 12:53] LABS: ACETONE, SERUM Trace (10mg/dL) mg/dL (Negative)
[2018-06-21 12:54] LABS: ALKALINE PHOSPHATASE 201 U/L (45-117); BILIRUBIN,TOTAL 0.6 mg/dL (0.2-1.0); CREATININE 2.35 mg/dL (0.55-1.02); TOTAL PROTEIN 6.6 g/dL (6.4-8.2)
[2018-06-21 12:56] LABS: TROPONIN I < 0.015 ng/mL (0.000-0.045)
[2018-06-21 12:58] LABS: MICROSCOPIC INDICATED
[2018-06-21 13:10] LABS: CULTURE INDICATED? YES
[2018-06-21] MEDS ORDERED: DIAZEPAM 5 MG/ML, 10ML VIAL IV ONE (13:30)
[2018-06-21] MEDS ORDERED: CYCLOBENZAPRINE 10 MG TABLET PO PRN (14:00)
[2018-06-21] MEDS ORDERED: ACETAMINOPHEN 325 MG TABLET PO PRN (14:00)
--- NOTE | 2018-06-21 14:06 | NUR ---
VALIUM IVP GIVEN. ADMITTING MD, DR. PATEL, AT BEDSIDE.
--- NOTE | 2018-06-21 14:36 | NUR ---
BEDSIDE REPORT CALLED TO DORITA RN. Addendum: 06/21/18 at 1441 by NIGEL REPORT CALLED TO RN. ARIANA
--- NOTE | 2018-06-21 14:40 | NUR ---
pt transferred to floor. pt left with all personal belongings.
[2018-06-21 15:33] VITALS: BP 110/69
[2018-06-21] MEDS: INSULIN LISPRO 100 UNITS/ML, PEN SQ-INSULIN SCH ×2 (16:00→21:00)
[2018-06-21] MEDS: MORPHINE SULFATE 4 MG/ML, 1ML IVPush PRN ×2 (16:34→19:48)
[2018-06-21] MEDS: HEPARIN 5,000 UNITS/ML, 1ML SQ SCH (16:34)
[2018-06-21] MEDS: SODIUM CHLORIDE 0.9% 1,000 ML IV SCH ×2 (16:34→21:46)
[2018-06-21 19:17] VITALS: BP 123/83
[2018-06-21 20:13] LABS: CLOSTRIDIUM DIFFICILE ANTIGEN NEGATIVE; CLOSTRIDIUM DIFFICILE TOXIN NEGATIVE (Negative)
[2018-06-22] MEDS: MORPHINE SULFATE 4 MG/ML, 1ML IVPush PRN ×5 (00:02→13:02)
[2018-06-22 01:47] VITALS: BP 139/88
[2018-06-22] MEDS: SODIUM CHLORIDE 0.9% 1,000 ML IV SCH ×2 (03:15→09:50)
[2018-06-22] MEDS: HEPARIN 5,000 UNITS/ML, 1ML SQ SCH (04:30)
[2018-06-22 05:16] LABS: ANION GAP 5 mmol/L (5-15); CALCIUM 7.6 mg/dL (8.5-10.1); CHLORIDE 112 mmol/L (98-107); CREATININE 1.21 mg/dL (0.55-1.02)
[2018-06-22 05:19] LABS: BASOPHILS # (AUTO) 0.02 x10^3/uL (0-0.1); BASOPHILS % (AUTO) 1 % (0-1); EOSINOPHILS % (AUTO) 3 % (1-7); LYMPHOCYTES # (AUTO) 1.61 x10^3/uL (1-3.4); LYMPHOCYTES % (AUTO) 40 % (22-44); MD NO; MEAN CORPUSCULAR HEMOGLOBIN 31.8 pg (27.0-34.8); MEAN CORPUSCULAR VOLUME 93.6 fL (80-100); MEAN PLATELET VOLUME 8.3 fL (7.4-10.4); MONOCYTES # (AUTO) 0.39 x10^3/uL (0.2-0.8); MONOCYTES % (AUTO) 10 % (2-9); NEUTROPHILS # (AUTO) 1.91 x10^3/uL (1.8-6.8); NEUTROPHILS % (AUTO) 47 % (42-75); PLATELET COUNT 225 x10^3/uL (130-400); RED BLOOD COUNT 3.28 x10^6/uL (3.82-5.3); RED CELL DISTRIBUTION WIDTH 15.4 % (9.6-15.2)
[2018-06-22 06:44] VITALS: BP 158/109
[2018-06-22] MEDS: INSULIN LISPRO 100 UNITS/ML, PEN SQ-INSULIN SCH ×2 (07:00→11:00)
[2018-06-22 12:15] VITALS: BP 144/89
== END 2018-06-22 14:18 | disposition home or self-care (01) | DRG 684 ==
LOC: ED 13:34 → EDIP 13:35 → ED 13:37 → 3NE 14:50
PROVIDERS: ADMIT Hospitalist; ATTEND Hospitalist
DX: N17.9 Acute kidney failure, unspecified (principal); E10.22 Type 1 diabetes mellitus with diabetic chronic kidney disease; E86.0 Dehydration; F12.90 Cannabis use, unspecified, uncomplicated; F17.200 Nicotine dependence, unspecified, uncomplicated; I12.9 Hypertensive chronic kidney disease with stage 1 through stage 4 chronic kidney disease, or unspecified chronic kidney disease; N18.3 Chronic kidney disease, stage 3 (moderate); Z87.19 Personal history of other diseases of the digestive system; Z96.41 Presence of insulin pump (external) (internal); K52.9 Noninfective gastroenteritis and colitis, unspecified; I95.9 Hypotension, unspecified; Z88.8 Allergy status to other drugs, medicaments and biological substances; Z79.899 Other long term (current) drug therapy; Z90.49 Acquired absence of other specified parts of digestive tract
CPT/HCPCS: 36415; 71045; 76700; 80048; 80053; 80074; 81001; 82010; 82803; 82947; 82962; 83690; 83735; 83930; 84484; 85025; 87086; 87324; 93005; 96374; G0378; J1644; J3360; J7030